=== PATIENT | female | born 1965 | race American Indian/Alaskan Native ===

== ENCOUNTER 2017-01-14 07:42 | Outpatient (CLI) | payer BC | END 2017-01-14 07:43 | disposition home or self-care (01) | LOC: ECHO 07:42 | PROVIDERS: ATTEND Internal Medicine | DX: I51.7 Cardiomegaly (principal); I37.1 Nonrheumatic pulmonary valve insufficiency | CPT/HCPCS: 93306 ==

== ENCOUNTER 2017-01-15 06:28 | Outpatient (CLI) | payer BC ==
--- NOTE | 2017-01-15 23:25 | Treadmill Report ---
The patient exercised for 6 minutes of the Grady protocol, the test was held at stage 2. She achieved 6 mets. Test was stopped for fatigue. Peak heart rate was 143 beats per minute. The peak blood pressure was 168/104. There was no chest pain. Test was stopped for fatigue. Baseline ECG was sinus rhythm. With exercise, there were no ST changes of ischemia. No significant dysrhythmias were noted. CONCLUSION: 1. Below average exercise capacity. 2. No chest pain with exercise. 3. No ST changes of ischemia. 4. No significant dysrhythmias. 5. This is a negative exercise ECG test, at below average exercise capacity. JOB# [id number] POLO/NTS
== END 2017-01-15 06:29 | disposition home or self-care (01) ==
LOC: CARD 06:28 → ECHO 06:28 → CARD 06:29
PROVIDERS: ATTEND Internal Medicine
DX: R06.02 Shortness of breath (principal)
CPT/HCPCS: 93017

== ENCOUNTER 2017-01-22 19:24 | Emergency (ER) | payer BC ==
[2017-01-22 20:12] VITALS: BP 158/112
== END 2017-01-22 20:44 | disposition left against medical advice (07) ==
LOC: ED 19:24
DX: H92.02 Otalgia, left ear (principal); Z53.21 Procedure and treatment not carried out due to patient leaving prior to being seen by health care provider

== ENCOUNTER 2017-11-26 03:34 | Emergency (ER) | payer BC ==
[2017-11-26 04:21] LABS: Basophils % (Auto) 0.6 % (0.0-1.8); Eosinophils # (Auto) 0.4 K/mm3 (0.0-0.4); Eosinophils % (Auto) 6.4 % (0.0-4.3); Hematocrit 34.6 % (30.3-42.9); Lymphocytes # (Auto) 2.6 K/mm3 (1.2-5.4); Lymphocytes % (Auto) 36.4 % (13.4-35.0); Mean Corpuscular HGB Conc 32 % (30-34); Mean Corpuscular Hemoglobin 26 pg (28-32); Mean Corpuscular Volume 83 fl (79-97); Monocytes # (Auto) 0.5 K/mm3 (0.0-0.8); Monocytes % (Auto) 7.2 % (0.0-7.3); Platelet Count 404 K/mm3 (140-440); Red Blood Count 4.15 M/mm3 (3.65-5.03); Red Cell Distribution Width 14.2 % (13.2-15.2)
[2017-11-26 04:38] LABS: Alanine Aminotransferase 12 units/L (7-56); BUN/Creatinine Ratio 10; Blood Urea Nitrogen 10 mg/dL (7-17); Calcium 9.2 mg/dL (8.4-10.2); Hemolysis Index 0
--- NOTE | 2017-11-26 06:13 | Emergency Department Report ---
ED General Adult HPI - General Chief complaint: Weakness Stated complaint: WEAKNESS Time Seen by Provider: 11/26/17 05:56 Source: patient Mode of arrival: Ambulatory Limitations: No Limitations - History of Present Illness Initial comments: Patient 52-year-old -[place] female with a history of recurrent sinusitis presents today with same facial pain pressure dizziness headache and malaise 1 week patient is currently out of antihistamines no antibiotics has follow-up with PCP in one week. There is no fevers no chills nausea no vomiting Similarly by lying down symptoms exacerbated by activity Onset/Timin -: days(s) Location: head Radiation: non-radiation Severity scale (0 -10): 3 Quality: aching Consistency: constant Improves with: none Worsens with: movement Associated Symptoms: fever/chills, headaches, malaise, weakness. denies: confusion, chest pain, nausea/vomiting, rash, shortness of breath, syncope Treatments Prior to Arrival: none - Related Data Previous Rx's Medication Instructions Recorded Last Taken Type Amoxicillin/Potassium Clav 1 each PO BID #20 tablet 11/26/17 Unknown Rx [Augmentin 875-125 Tablet] Cetirizine HCl [ZyrTEC] 10 mg PO DAILY #30 capsule 11/26/17 Unknown Rx Ibuprofen 800 mg PO TID PRN #30 tablet 11/26/17 Unknown Rx Oxymetazoline 0.05% [Afrin] 2 spray NS BID 3 Days #1 bottle 11/26/17 Unknown Rx Allergies Allergy/AdvReac Type Severity Reaction Status Date / Time shrimp Allergy Swelling Verified 01/22/17 20:43 ED Review of Systems ROS: Stated complaint: WEAKNESS Other details as noted in HPI Constitutional: chills, malaise. denies: fever Eyes: as per HPI ENT: congestion, other (sinus pain ). denies: ear pain, throat pain Respiratory: denies: cough, shortness of breath, wheezing Cardiovascular: denies: chest pain, palpitations Endocrine: no symptoms reported Gastrointestinal: denies: abdominal pain, nausea, diarrhea Genitourinary: denies: urgency, dysuria, discharge Musculoskeletal: denies: back pain, joint swelling, arthralgia Skin: denies: rash, lesions Neurological: denies: headache, weakness, paresthesias Psychiatric: denies: anxiety, depression Hematological/Lymphatic: denies: easy bleeding, easy bruising ED Past Medical Hx - Past Medical History Previous Medical History?: No - Surgical History Past Surgical History?: No - Social History Smoking Status: Never Smoker Substance Use Type: None - Medications Home Medications: Home Medications Medication Instructions Recorded Confirmed Last Taken Type Amoxicillin/Potassium Clav 1 each PO BID #20 tablet 11/26/17 Unknown Rx [Augmentin 875-125 Tablet] Cetirizine HCl [ZyrTEC] 10 mg PO DAILY #30 capsule 11/26/17 Unknown Rx Ibuprofen 800 mg PO TID PRN #30 tablet 11/26/17 Unknown Rx Oxymetazoline 0.05% [Afrin] 2 spray NS BID 3 Days #1 bottle 11/26/17 Unknown Rx ED Physical Exam - General Limitations: No Limitations General appearance: alert, in no apparent distress - Head Head exam: Present: atraumatic, normocephalic - Eye Eye exam: Present: normal appearance, PERRL, EOMI Pupils: Present: normal accommodation - ENT ENT exam: Present: mucous membranes moist, TM's normal bilaterally, normal external ear exam, other (bilat maxillary sinus tenderness pain to palpation no swelling no erythema , bilat turbinate erythema edema boggy yellow drainage ) - Neck Neck exam: Present: normal inspection, full ROM, lymphadenopathy. Absent: tenderness, thyromegaly - Respiratory Respiratory exam: Present: normal lung sounds bilaterally. Absent: respiratory distress, wheezes, stridor, chest wall tenderness - Cardiovascular Cardiovascular Exam: Present: regular rate, normal rhythm, normal heart sounds. Absent: systolic murmur, diastolic murmur, rubs, gallop - GI/Abdominal GI/Abdominal exam: Present: soft, normal bowel sounds. Absent: distended, tenderness, guarding, rebound, rigid, organomegaly, mass, bruit, pulsatile mass - Rectal Rectal exam: Present: deferred - Extremities Exam Extremities exam: Present: normal inspection, full ROM. Absent: tenderness - Back Exam Back exam: Present: normal inspection, full ROM. Absent: tenderness, CVA tenderness (R), CVA tenderness (L), muscle spasm, paraspinal tenderness, vertebral tenderness - Neurological Exam Neurological exam: Present: alert, oriented X3, CN II-XII intact, normal gait, reflexes normal. Absent: motor sensory deficit - Psychiatric Psychiatric exam: Present: normal affect, normal mood - Skin Skin exam: Present: warm, dry, intact, normal color ED Medical Decision Making - Lab Data Result diagrams: 11/26/17 03:59 11/26/17 03:59 Laboratory Tests 11/26/17 11/26/17 11/26/17 03:59 03:59 04:00 WBC 7.0 RBC 4.15 Hgb 11.0 Hct 34.6 MCV 83 MCH 26 L MCHC 32 RDW 14.2 Plt Count 404 Lymph % (Auto) 36.4 H Meigs % (Auto) 7.2 Eos % (Auto) 6.4 H Baso % (Auto) 0.6 Lymph # 2.6 Meigs # 0.5 Eos # 0.4 Baso # 0.0 Seg Neutrophils % 49.4 Seg Neutrophils # 3.5 Sodium 141 Potassium 3.8 Chloride 101.5 Carbon Dioxide 29 Anion Gap 14 BUN 10 Creatinine 1.0 Estimated GFR > 60 BUN/Creatinine Ratio 10 Glucose 129 H Calcium 9.2 Total Bilirubin 0.20 AST 16 ALT 12 Alkaline Phosphatase 60 Troponin T < 0.010 Total Protein 7.4 Albumin 4.0 Albumin/Globulin Ratio 1.2 - EKG Data EKG shows normal: sinus rhythm Rate: normal - EKG Data When compared to previous EKG there are: previous EKG unavailable - Radiology Data Radiology results: report reviewed, image reviewed normal chest xray no infiltrates no opacities - Medical Decision Making EKG normal sinus rhythm with no ST elevated AL chest x-ray normal no infiltration opacities heart score is 0 there is no vertigo no shortness of breath no dizziness no nausea vomiting no fever noted at this time ENT exam turbinates bilaterally boggy yellow greenish postnasal drip bilateral maxillary pain to palpation pharynx patent uvula remains midline plan This is a recurring sinusitis plan Augmentin ibuprofen Afrin nasal spray 3 days Zyrtec follow-up with ENT in 2-3 days , patient verbalizes agreement with treatment and discharge plan will be DC'd home in stable condition at this time Critical care attestation.: If time is entered above; I have spent that time in minutes in the direct care of this critically ill patient, excluding procedure time. ED Disposition Clinical Impression: Sinusitis Qualifiers: Sinusitis location: maxillary Chronicity: acute Recurrence: recurrent Qualified Code(s): J01.01 - Acute recurrent maxillary sinusitis Disposition: DC- TO HOME OR SELFCARE Is pt being admited?: No Does the pt Need Aspirin: No Condition: Good Instructions: Sinusitis (ED) Prescriptions: Amoxicillin/Potassium Clav [Augmentin 875-125 Tablet] 1 each PO BID #20 tablet Cetirizine HCl [ZyrTEC] 10 mg PO DAILY #30 capsule Ibuprofen 800 mg PO TID PRN #30 tablet PRN Reason: pain Oxymetazoline 0.05% [Afrin] 2 spray NS BID 3 Days #1 bottle Referrals: PRIMARY CARE, [Referring] - 3-5 Days Forms: Work/School Release Form(ED) Time of Disposition: 07:26
--- NOTE | 2017-11-26 06:36 | XRay Report ---
FINAL REPORT PROCEDURE: XR CHEST ROUTINE 2V TECHNIQUE: PA and lateral chest radiographs were obtained. CPT 88381 HISTORY: weakness COMPARISON: No prior studies are available for comparison. FINDINGS: Heart: Normal. Mediastinum/Vessels: Normal. Lungs/Pleural space: Normal. Bony thorax: No acute osseous abnormality. Other: IMPRESSION: Normal examination.
[2017-11-26 07:58] VITALS: BP 141/104
== END 2017-11-26 07:44 | disposition home or self-care (01) ==
LOC: ED 03:34 → EEVIPCON 03:34 → ED 07:44
DX: J01.01 Acute recurrent maxillary sinusitis (principal); Z91.013 Allergy to seafood
CPT/HCPCS: 36415; 71046; 80053; 84484; 85025; 93005; 93010; 99284

== ENCOUNTER 2018-10-10 01:27 | Emergency (ER) | payer BC ==
[2018-10-10 01:33] VITALS: BP 162/103
[2018-10-10] MEDS ORDERED: BENADRYL PO ONE (01:42)
[2018-10-10] MEDS ORDERED: PEPCID PO ONE (01:42)
[2018-10-10] MEDS ORDERED: SOLU-Medrol IM ONE (01:42)
--- NOTE | 2018-10-10 02:06 | Emergency Department Report ---
HPI - General Chief Complaint: Allergic Reaction Time Seen by Provider: 10/10/18 01:40 - HPI HPI: Patient is a 53-year-old -[place]ym[place] female with past medical history of HTN presents to the ED with complaint of acute onset persistent itchy erythemat ous maculopapular urticarial rash for the last 2 hours with a no known etiology. Patient unsure what may have triggered the itching and cannot remember anything new that she may have been in contact with or he may have consumed the last 12 hours. Patient denies shortness of breath, swollen lips or tongue, dysphagia, dysphonia, swollen throat, wheezing, cough, swollen face, nausea, vomiting, diar laith or abdominal pain, fever or chills ED Past Medical Hx - Past Medical History Previous Medical History?: Yes Hx Hypertension: Yes - Surgical History Past Surgical History?: No - Social History Smoking Status: Never Smoker Substance Use Type: Alcohol - Medications Home Medications: Home Medications Medication Instructions Recorded Confirmed Last Taken Type Amoxicillin/Potassium Clav 1 each PO BID #20 tablet 11/26/17 Unknown Rx [Augmentin 875-125 Tablet] Cetirizine HCl [ZyrTEC] 10 mg PO DAILY #30 capsule 11/26/17 Unknown Rx Ibuprofen 800 mg PO TID PRN #30 tablet 11/26/17 Unknown Rx Oxymetazoline 0.05% [Afrin] 2 spray NS BID 3 Days #1 bottle 11/26/17 Unknown Rx ALBUTEROL Inhaler (OR & NICU) 2 puff IH QID PRN #1 inhalation 04/09/18 Unknown Rx [ProAir HFA Inhaler] Azithromycin [Zithromax Z-YOEL] 250 mg PO DAILY #6 tablet 04/09/18 Unknown Rx traMADol [Ultram] 50 mg PO Q6HR PRN #10 tablet 04/09/18 Unknown Rx Ranitidine HCl [Zantac] 150 mg PO Q12H #30 tablet 10/10/18 Unknown Rx diphenhydrAMINE [Benadryl CAP] 25 mg PO Q6HR PRN #30 capsule 10/10/18 Unknown Rx predniSONE [Deltasone] 60 mg PO QDAY 5 Days #15 tab 10/10/18 Unknown Rx ED Review of Systems ROS: Stated complaint: RASH Other details as noted in HPI Comment: All other systems reviewed and negative Constitutional: denies: chills, fever Eyes: denies: eye pain, eye discharge, vision change ENT: denies: ear pain, throat pain, hearing loss, congestion Respiratory: denies: cough, shortness of breath, wheezing Cardiovascular: denies: chest pain, palpitations Endocrine: no symptoms reported, see HPI Gastrointestinal: denies: abdominal pain, nausea, vomiting, diarrhea Genitourinary: denies: urgency, dysuria, discharge Musculoskeletal: denies: back pain, joint swelling, arthralgia Skin: rash (mildly erythematous maculopapular urticarial rash diffusely), change in color (mildly erythematous), pruritus. denies: lesions Neurological: denies: headache, weakness, paresthesias Psychiatric: denies: anxiety, depression Hematological/Lymphatic: denies: easy bleeding, easy bruising Physical Exam - Physical Exam Vital Signs: Vital Signs 10/10/18 01:31 Temperature 98.6 F Pulse Rate 121 H Respiratory 18 Rate Blood Pressure 162/103 O2 Sat by Pulse 96 Oximetry General: Patient is alert and oriented 3, and is in no acute distress but tachycardic. Physical Exam: Physical exam is unremarkable except for skin which showed erythematous maculopapular urticarial rash is diffusely. ED Course Vital Signs 10/10/18 01:31 Temperature 98.6 F Pulse Rate 121 H Respiratory 18 Rate Blood Pressure 162/103 O2 Sat by Pulse 96 Oximetry - Reevaluation(s) Reevaluation #1: 10/10/18 02:08 Patient is alert and oriented 3, tachycardic and in no acute distress. Patient was treated in the ED for acute allergic reaction with Solu-Medrol, Benadryl and Pepcid. On reevaluation, patient felt better and the itching resolved although patient felt groggy. The vital signs were rechecked and the patient's tachycardia resolved as well. Patient was discharged home on a steroid Dosepak, Benadryl and Zantac prescriptions. The patient was advised to follow up with her primary care physician in 2 days for reevaluation or return to the ED immediately if symptoms get worse. ED Medical Decision Making - Medical Decision Making Patient is alert and oriented 3, tachycardic and in no acute distress. Patient was treated in the ED for acute allergic reaction with Solu-Medrol, Benadryl and Pepcid. On reevaluation, patient felt better and the itching resolved although patient felt groggy. The vital signs were rechecked and the patient's tachycardia resolved as well with heart rate of 96 bpm and oxygen saturation are 100% in room air. Patient was discharged home on a steroid Dosepak, Benadryl and Zantac prescriptions. The patient was advised to follow up with her primary care physician in 2 days for reevaluation or return to the ED immediately if symptoms get worse. - Differential Diagnosis acute allergic reaction, itching with irritation, acute urticaria Critical care attestation.: If time is entered above; I have spent that time in minutes in the direct care of this critically ill patient, excluding procedure time. ED Disposition Clinical Impression: Acute urticaria, Itching with irritation Acute allergic reaction Qualifiers: Encounter type: initial encounter Qualified Code(s): T78.40XA - Allergy, unspecified, initial encounter Disposition: TO HOME OR SELFCARE Is pt being admited?: No Does the pt Need Aspirin: No Condition: Stable Instructions: Urticaria (ED), Allergies (ED), Itchy Skin (ED) Additional Instructions: Take medications with food as advice, drink plenty of fluids and follow up with your primary care physician in 2 days for reevaluation. Return to the ED immediately if symptoms get worse. Prescriptions: diphenhydrAMINE [Benadryl CAP] 25 mg PO Q6HR PRN #30 capsule PRN Reason: Itching predniSONE [Deltasone] 60 mg PO QDAY 5 Days #15 tab Ranitidine HCl [Zantac] 150 mg PO Q12H #30 tablet Referrals: [facility] [Outside] - 3-5 Days Time of Disposition: 02:12 Print Language: [id number]
== END 2018-10-10 03:54 | disposition home or self-care (01) ==
LOC: ED 01:27
DX: T78.40XA Allergy, unspecified, initial encounter (principal); L50.9 Urticaria, unspecified; I10 Essential (primary) hypertension; Y92.89 Other specified places as the place of occurrence of the external cause
CPT/HCPCS: 96372; 99282; J2930